=== PATIENT | male | born 1970 | race Caucasian/White ===

== ENCOUNTER 2018-09-04 18:04 | Emergency (ER) | payer MEDICAID ==
[~2018-09-04] VITALS: Ht 170.2 cm; Wt 95.5 kg
[2018-09-04] MEDS ORDERED: NAPROSYN500 MG PO (19:25)
[2018-09-04 19:35] VITALS: BP 125/82
== END 2018-09-04 19:35 | disposition home or self-care (01) | DRG 563 ==
LOC: ED 18:04
DX: S63.634A Sprain of interphalangeal joint of right ring finger, initial encounter (principal); X58.XXXA Exposure to other specified factors, initial encounter; Y93.89 Activity, other specified; Y92.89 Other specified places as the place of occurrence of the external cause; Y99.0 Civilian activity done for income or pay